=== PATIENT | female | born 1990 | race Hispanic/Latino ===

== ENCOUNTER 2020-06-29 12:56 | Emergency (ER) | payer OTHER ==
[2020-06-29 13:31] LABS: Absolute Lymphocytes (CBC) 1.2 K/uL (0.7-4.9); Basophils % 0.4 % (0-1.3); Hematocrit 47.4 % (36.0-45.0); Lymphocytes % 9.1 % (15.3-44.8); MPV 9.6 fL (7.6-11.3); RBC Red Blood Cell Count 5.14 M/uL (3.86-4.86)
[2020-06-29 13:50] LABS: Albumin 4.2 g/dL (3.4-5.0); Bilirubin Direct 0.2 mg/dL (0-0.2); Bilirubin Total 0.7 mg/dL (0.2-1.0); Potassium 3.8 mmol/L (3.5-5.1); Protein, Total 8.8 g/dL (6.4-8.2)
[2020-06-29] MEDS ORDERED: ONDANSETRON 4 MG/2 ML VIAL ONE (14:03)
[2020-06-29 14:23] LABS: Anisocytosis 1+; Blood Morphology Comment NOTED (NOT SEEN); Platelet Estimate ADEQ; Poikilocytosis 1+; Urine White Blood Cell Casts OK
[2020-06-29 15:00] LABS: Urine Blood TRACE (NEG); Urine Glucose NEGATIVE (NEG); Urine Protein 2+ (NEG); Urine Specific Gravity >1.030 (1.005-1.030)
[2020-06-29] MEDS ORDERED: Ringers Lactate 1,000 ML IV ONE (15:00)
[2020-06-29] MEDS ORDERED: MEPERIDINE HCL 50 MG/ML ONE (15:22)
[2020-06-29] MEDS ORDERED: PROMETHAZINE INJ 25 MG/ML AMP ONE (15:22)
--- NOTE | 2020-06-29 15:32 | RAD REPORT ---
EXAM DESCRIPTION: US - Abdomen Exam Limited - 06/29/2020 2:13 pm CLINICAL HISTORY: ABD PAIN COMPARISON: No comparisons FINDINGS: The gallbladder demonstrates several shadowing gallstones. No pericholecystic fluid or gal lbladder wall thickening. The common bile duct is upper limit of normal measuring 6 mm. The liver demonstrates no findings of intrahepatic biliary dilatation. IMPRESSION: Cholelithiasis without sonographic findings of acute cholecystitis.
--- NOTE | 2020-06-29 15:52 | ER ---
Nurse's Notes [facility] Name: Carolin Grace Age: 29 yrs Sex: Female : 1990 Arrival Date: 06/29/2020 Time: 12:59 Bed 7 Private MD: Diagnosis: Cholelithiasis;Upper abdominal pain, unspecified Presentation: 06/29 13:08 Chief complaint: Patient states: abd pain that started on Tuesday with n/v. Reports jr10 trying pepto bismal at home and herbal teas without relief. Coronavirus screen: Client denies travel out of the [place] in the last 14 days. At this time, the client does not indicate any symptoms associated with coronavirus-19. Ebola Screen: No symptoms or risks identified at this time. Initial Sepsis Screen: Does the patient meet any 2 criteria? No. Patient's initial sepsis screen is negative. Does the patient have a suspected source of infection? No. Patient's initial sepsis screen is negative. Risk Assessment: Do you want to hurt yourself or someone else? Patient reports no desire to harm self or others. Onset of symptoms was June 27, 2020. 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 - Social history:: Smoking status: unknown. Screenin:15 Abuse screen: Denies threats or abuse. Denies injuries from another. Nutritional jr10 screening: No deficits noted. Tuberculosis screening: No symptoms or risk factors identified. Fall Risk None identified. Assessment: 13:14 General: Appears uncomfortable, Behavior is calm, cooperative, appropriate for age. jr10 Pain: Complains of pain in right upper quadrant and left upper quadrant Pain does not radiate. Pain currently is 7 out of 10 on a pain scale. Quality of pain is described as sharp, Pain began 2-3 days ago. Is continuous, Alleviated by nothing. Neuro: No deficits noted. Cardiovascular: No deficits noted. Respiratory: No deficits noted. GI: Abdomen is round non-distended, Bowel sounds present X 4 quads. Abd is soft X 4 quads Abdomen is tender to palpation in right upper quadrant and left upper quadrant. : No deficits noted. : Denies burning with urination, pain with urination flank(s). EENT: No deficits noted. Derm: No deficits noted. Musculoskeletal: No deficits noted. Vital Signs: 13:08 BP 141 / 103; Pulse 77; Resp 18; Temp 98.1; Pulse Ox 100% ; Weight 81.65 kg (R); Height jr10 4 ft. 11 in. (149.86 cm) (R); Pain 7/10; 14:15 BP 134 / 93; Pulse 51; Resp 20; Pulse Ox 99% on R/A; jr10 15:15 BP 131 / 88; Pulse 59; Resp 18; Pulse Ox 98% on R/A; Pain 6/10; jr10 13:08 Body Mass Index 36.36 (81.65 kg, 149.86 cm) jr10 ED Course: 12:59 Patient arrived in ED. as 13:02 Sabino Gomez PA is PHCP. jr8 13:02 Samuel Mariee MD is Attending Physician. jr8 13:03 Ely Rollins, JEREMIAS is Primary Nurse. jr10 13:13 Triage completed. jr10 13:14 Arm band placed on. jr10 13:15 Patient has correct armband on for positive identification. Bed in low position. Call jr10 light in reach. Side rails up X 1. Pulse ox on. NIBP on. 13:20 Inserted saline lock: 20 gauge in left forearm, using aseptic technique. IV is patent, jr10 is intact, with good blood return, Flushed. 15:52 Damian Alarcon MD is Referral Physician. jr8 16:01 No provider procedures requiring assistance completed. IV discontinued, bleeding jr10 controlled, No redness/swelling at site. Pressure dressing applied. Administered Medications: 13:58 Drug: Zofran (Ondansetron) 4 mg Route: IVP; Site: left forearm; jr10 14:19 Follow up: Response: No adverse reaction; Nausea is decreased jr10 14:58 Drug: Ringers - Lactated Ringers Solution 1000 ml Route: IV; Rate: calculated rate; jr10 Site: left forearm; 15:46 Follow up: Response: No adverse reaction; IV Status: Completed infusion jr10 15:19 Drug: Promethazine 12.5 mg Route: IVP; Site: left forearm; jr10 15:46 Follow up: Response: No adverse reaction; Pain is decreased; Nausea is decreased jr10 15:23 Drug: Demerol 25 mg Route: IVP; Site: left forearm; jr10 15:46 Follow up: Response: No adverse reaction; Pain is decreased jr10 Outcome: 15:52 Discharge ordered by . jr8 16:02 Discharged to home ambulatory. jr10 16:02 Condition: improved 16:02 Discharge instructions given to patient, Instructed on discharge instructions, follow up and referral plans. Demonstrated understanding of instructions, follow-up care, medications, Prescriptions given X 2. 16:03 Patient left the ED. jr10 Signatures: Mary Mir Josh, PA PA jr8 Ely Rollins RN RN jr10
--- NOTE | 2020-06-29 15:53 | EDPHYS ---
Physician Documentation [facility] Name: Carolin Grace Age: 29 yrs Sex: Female : 1990 Arrival Date: 06/29/2020 Time: 12:59 Bed 7 Private MD: ED Physician Samuel Mariee HPI: 06/29 15:06 This 29 yrs old Female presents to ER via Ambulatory with complaints of jr8 Abdominal Pain. 15:06 The patient presents with abdominal pain in the epigastric area, in the upper abdomen. jr8 Onset: The symptoms/episode began/occurred suddenly, 2 day(s) ago. The symptoms do not radiate. Associated signs and symptoms: Pertinent positives: nausea and vomiting. The symptoms are described as stabbing. Modifying factors: The symptoms are alleviated by nothing, the symptoms are aggravated by food. Severity of pain: At its worst the pain was moderate in the emergency department the pain is unchanged. The patient has not experienced similar symptoms in the past. The patient has not recently seen a physician. 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 - Social history:: Smoking status: unknown. ROS: 15:06 Eyes: Negative for injury, pain, redness, and discharge, ENT: Negative for injury, jr8 pain, and discharge, Neck: Negative for injury, pain, and swelling, Cardiovascular: Negative for chest pain, palpitations, and edema, Respiratory: Negative for shortness of breath, cough, wheezing, and pleuritic chest pain, Back: Negative for injury and pain, MS/Extremity: Negative for injury and deformity, Skin: Negative for injury, rash, and discoloration, Neuro: Negative for headache, weakness, numbness, tingling, and seizure. 15:06 Abdomen/GI: Positive for abdominal pain, nausea, vomiting, Negative for diarrhea, constipation, abdominal cramps, abdominal distension. Exam: 15:06 Eyes: Pupils equal round and reactive to light, extra-ocular motions intact. Lids and jr8 lashes normal. Conjunctiva and sclera are non-icteric and not injected. Cornea within normal limits. Periorbital areas with no swelling, redness, or edema. ENT: Nares patent. No nasal discharge, no septal abnormalities noted. Tympanic membranes are normal and external auditory canals are clear. Oropharynx with no redness, swelling, or masses, exudates, or evidence of obstruction, uvula midline. Mucous membranes moist. Neck: Trachea midline, no thyromegaly or masses palpated, and no cervical lymphadenopathy. Supple, full range of motion without nuchal rigidity, or vertebral point tenderness. No Meningismus. Cardiovascular: Regular rate and rhythm with a normal S1 and S2. No gallops, murmurs, or rubs. Normal PMI, no JVD. No pulse deficits. Respiratory: Lungs have equal breath sounds bilaterally, clear to auscultation and percussion. No rales, rhonchi or wheezes noted. No increased work of breathing, no retractions or nasal flaring. Back: No spinal tenderness. No costovertebral tenderness. Full range of motion. Skin: Warm, dry with normal turgor. Normal color with no rashes, no lesions, and no evidence of cellulitis. MS/ Extremity: Pulses equal, no cyanosis. Neurovascular intact. Full, normal range of motion. Neuro: Awake and alert, GCS 15, oriented to person, place, time, and situation. Cranial nerves II-XII grossly intact. Motor strength 5/5 in all extremities. Sensory grossly intact. Cerebellar exam normal. Normal gait. 15:06 Abdomen/GI: Inspection: abdomen appears normal, Bowel sounds: active, all quadrants, Palpation: soft, in all quadrants, moderate abdominal tenderness, in the epigastric area and right upper quadrant, mass, is not appreciated, rebound tenderness, is not appreciated, voluntary guarding, is not appreciated, involuntary guarding, is not appreciated, no appreciated organomegaly, Indicators: McBurney's point is not tender, Mack's sign is negative, Rovsing's sign is negative, Liver: tenderness, is not appreciated. Vital Signs: 13:08 BP 141 / 103; Pulse 77; Resp 18; Temp 98.1; Pulse Ox 100% ; Weight 81.65 kg (R); Height jr10 4 ft. 11 in. (149.86 cm) (R); Pain 7/10; 14:15 BP 134 / 93; Pulse 51; Resp 20; Pulse Ox 99% on R/A; jr10 15:15 BP 131 / 88; Pulse 59; Resp 18; Pulse Ox 98% on R/A; Pain 6/10; jr10 13:08 Body Mass Index 36.36 (81.65 kg, 149.86 cm) jr10 MDM: 13:03 Patient medically screened. [facility] 15:50 Data reviewed: vital signs, nurses notes, lab test result(s), radiologic studies, 8 ultrasound. Data interpreted: Pulse oximetry: on room air is 98 %. Interpretation: normal. Counseling: I had a detailed discussion with the patient and/or guardian regarding: the historical points, exam findings, and any diagnostic results supporting the discharge/admit diagnosis, lab results, radiology results, the need for outpatient follow up, a general surgeon, to return to the emergency department if symptoms worsen or persist or if there are any questions or concerns that arise at home. Response to treatment: the patient's symptoms have markedly improved after treatment, patient is well hydrated. Tolerates PO fluids . 15:50 ED course: Patient feeling better. Hemodynamically stable. No signs on US of acute jr8 infection or obstruction of bile duct. No fever. Close return precautions and s/s to watch for given to patient. Patient will f/u with general surgery in the meantime or come back if worse . 06/29 13:02 Order name: Basic Metabolic Panel [facility] 06/29 13:02 Order name: CBC with Diff 06/29 13:02 Order name: Hepatic Function [facility] 06/29 13:02 Order name: Lipase [facility] 06/29 13:02 Order name: Urine Microscopic Only [facility] 06/29 13:32 Order name: CBC with Automated Diff; Complete Time: 14:36 EDMS 06/29 13:32 Order name: Urine Dipstick--Ancillary (enter results) [facility] 06/29 13:34 Order name: Urine --Ancillary (enter results) 06/29 13:50 Order name: Basic Metabolic Panel; Complete Time: 13:51 EDMS 06/29 13:50 Order name: Liver (Hepatic) Function; Complete Time: 13:51 EDMS 06/29 13:50 Order name: Lipase; Complete Time: 13:51 EDMS 06/29 14:24 Order name: CBC Smear Scan; Complete Time: 14:36 EDMS 06/29 15:01 Order name: Urine Dipstick-Ancillary; Complete Time: 15:01 EDMS 06/29 15:01 Order name: Urine --Ancillary; Complete Time: 15:01 EDMS 06/29 13:02 Order name: IV Saline Lock; Complete Time: 13:33 [facility] 06/29 13:02 Order name: Labs collected and sent; Complete Time: 13:33 [facility] 06/29 13:02 Order name: Urine Test (obtain specimen); Complete Time: 13:33 [facility] 06/29 13:02 Order name: Urine Dipstick-Ancillary (obtain specimen); Complete Time: 13:33 [facility] 06/29 13:51 Order name: US Abdomen Limited [facility] 06/29 15:32 Order name: US; Complete Time: 15:34 EDMS Administered Medications: 13:58 Drug: Zofran (Ondansetron) 4 mg Route: IVP; Site: left forearm; jr10 14:19 Follow up: Response: No adverse reaction; Nausea is decreased jr10 14:58 Drug: Ringers - Lactated Ringers Solution 1000 ml Route: IV; Rate: calculated rate; jr10 Site: left forearm; 15:46 Follow up: Response: No adverse reaction; IV Status: Completed infusion jr10 15:19 Drug: Promethazine 12.5 mg Route: IVP; Site: left forearm; jr10 15:46 Follow up: Response: No adverse reaction; Pain is decreased; Nausea is decreased jr10 15:23 Drug: Demerol 25 mg Route: IVP; Site: left forearm; jr10 15:46 Follow up: Response: No adverse reaction; Pain is decreased jr10 Disposition: 16:10 Co-signature as Attending Physician, Samuel Mariee MD. rn Disposition: 06/29/20 15:52 Discharged to Home. Impression: Cholelithiasis, Upper abdominal pain, unspecified. - Condition is Stable. - Discharge Instructions: Abdominal Pain, Adult, Cholelithiasis. - Prescriptions for Tylenol- Codeine #3 300-30 mg Oral Tablet - take 2 tablets by ORAL route every 6 hours As needed; 20 tablet. Zofran 4 mg Oral Tablet - take 1 tablet by ORAL route every 12 hours As needed; 20 tablet. - Medication Reconciliation Form, Thank You Letter, Antibiotic Education, Prescription Opioid Use form. - Follow up: Damian Alarcon MD; When: 2 - 3 days; Reason: Recheck today's complaints, Continuance of care, Re-evaluation by your physician. - Problem is new. - Symptoms have improved. Signatures: Dispatcher [employer] EDMS Samuel Mariee MD MD rn Roszak, Josh, PA PA jr8 Ely Rollins RN RN jr10 Corrections: (The following items were deleted from the chart) 16:03 15:52 06/29/2020 15:52 Discharged to Home. Impression: Cholelithiasis; Upper abdominal jr10 pain, unspecified. Condition is Stable. Forms are Medication Reconciliation Form, Thank You Letter, Antibiotic Education, Prescription Opioid Use. Follow up: Dr. Damian Alarcon; When: 2 - 3 days; Reason: Recheck today's complaints, Continuance of care, Re-evaluation by your physician. Problem is new. Symptoms have improved. jr8
[2020-06-29 16:08] VITALS: TEMP 98.1
[2020-06-29 16:10] VITALS: BP 131/88; O2SAT 98
[2020-06-29 16:17] LABS: Urine Amorphous Sediment 1+ /HPF (NONE SEEN); Urine Bacteria 20-50 /HPF (<20); Urine Culture Reflex Order REFLEXED; Urine Mucus 1+ /HPF (NONE SEEN); Urine RBC <5 /HPF (NONE SEEN)
== END 2020-06-29 16:03 | disposition home or self-care (01) ==
LOC: ER 12:56
DX: K80.20 Calculus of gallbladder without cholecystitis without obstruction (principal)
CPT/HCPCS: 87088; 85025; 87086; 80048; 36415; 81025; 80076; 83690; 76705; J2550; J2175; J7120; J2405; 81003; 81015; 96365; 96375; 99284

== ENCOUNTER 2020-07-02 06:34 | Day surgery (SDC) | payer OTHER ==
[2020-07-02] MEDS: Ringers Lactate 1,000 ML IV ONE ×3 (07:05→09:20)
[2020-07-02] MEDS ORDERED: CEFOXITIN/SWI 1gm 0 GM/0 ML SYR ONE (07:09)
[2020-07-02] MEDS: BUPIVACAINE 0.5% PF 10 ML VIAL ONE ×2 (07:14→07:47)
[2020-07-02] MEDS ORDERED: LIDOCAINE 2% MPF 5 ML VIAL ONE (07:15)
[2020-07-02] MEDS ORDERED: dexAMETHasone 10 MG/ML VIAL ONE (07:15)
[2020-07-02] MEDS ORDERED: MIDAZOLAM HCL 2 MG/2 ML INJ ONE (07:15)
[2020-07-02] MEDS ORDERED: FENTANYL CITR 100 MCG/2 ML ONE (07:15)
[2020-07-02] MEDS ORDERED: propofoL 200 MG/20 ML VIAL IV ONE (07:15)
[2020-07-02] MEDS ORDERED: ROCURONIUM 50 MG/5 ML VIAL IV ONE (07:16)
[2020-07-02] MEDS ORDERED: ONDANSETRON 4 MG/2 ML VIAL ONE ×2 (07:16→09:14)
[2020-07-02] MEDS ORDERED: CEFOXITIN/SWI 1gm 1 GM/10 ML SYR ONE (07:34)
[2020-07-02] MEDS ORDERED: NEOSTIGMINE 1 MG/ML -5 ML ONE (08:34)
[2020-07-02] MEDS ORDERED: GLYCOPYRROLATE 0.2 MG/ML SYR ONE (08:34)
[2020-07-02] MEDS ORDERED: KETOROLAC 30 MG/ML INJ ONE (08:34)
[2020-07-02] MEDS ORDERED: HYDROMORPHONE HCL 1 MG/ML INJ ONE (09:14)
[2020-07-02] MEDS ORDERED: HYDROCODONE/APAP 7.5/325 MG TAB ONE (10:01)
--- NOTE | 2020-07-02 10:43 | OP ---
Date of Procedure: 07/02/2020 Surgeon: Damian Alarcon MD Electric Stove Installer: Ara Michaels. Preoperative Diagnoses: [id number] cholecystitis, cholelithiasis. Postoperative Diagnoses: [id number] cholecystitis, cholelithiasis. Procedure: Laparoscopic cholecystectomy. Estimated Blood Loss: Minimal. Specimen: Gallbladder. Findings: As above. Anesthesia: General. Complications: None. Disposition: The patient tolerated the procedure in stable condition, taken to Recovery in good gene ral condition. Procedure In Detail: The patient was brought to the OR and placed in supine position. General anest hesia was begun. The patient was prepped and draped in usual sterile fashion. Marcaine 0.5% was inf iltrated locally. A 15-blade was used to make a 1 cm transverse infraumbilical incision where previo us incision line was made for a tubal. Subcutaneous tissue was divided. Fascia was identified and d ivided. #1 Vicryl stay suture was placed. Peritoneal cavity was entered with sharp and blunt dissec tion. 12 mm trocar was placed into the peritoneal cavity under direct vision. Pneumoperitoneum was established and three 5 mm trocars were placed; 1 in the epigastrium just to the right of midline and 2 in the right subcostal region. Laparoscopy revealed omental adhesions, which were taken down with sharp and blunt dissection. Bleeding was controlled with cautery and gallbladder was distended, asp irated. Hydrops was present consistent with acute cholecystitis. Then, fundus was retracted superio rly. Infundibulum was identified and retracted inferolaterally. Cystic duct and cystic artery were clearly identified with blunt dissection. Clips were placed. Both structures were divided. Cautery was used to remove the gallbladder from the liver bed. Bleeding on the liver bed was controlled wit h cautery. Gallbladder was retrieved through the umbilicus via an EndoCatch bag. Right upper quadra nt was irrigated. Effluent was clear. There was minimal oozing noted from the liver bed. Surgicel was placed in the liver bed. No more oozing noted. No bleeding noted. No bile noted. Therefore , all trocars were removed under direct vision. Stay sutures were tied to each other to reapproximate the fascial defect. Subcutaneous wounds were irrigated. Bleeding controlled with cautery. 3-0 lunchroom food service supervisor rick used to approximate the subcutaneous tissue and close the skin. Sterile dressing was applied. T he patient was awakened and taken to Recovery in good general condition. Discharge Note: The patient will go to Day Surgery and home when stable. Disposition: Home. Condition: Stable. Discharge Instructions: Resume home medications and diet. Activity as tolerated. No heavy lifting. Remove outer dressing in 2 days. Shower. Keep wound clean and dry. Follow up in my office in [place] w [place]. Call for appointment. Tylenol No. 3 one tablet p.o. q.4 p.r.n. pain. Incentive spirometry is ordered. It was also noted that the patient was already started on antibiotics prior to surgery and she will c ontinue Augmentin for another 9 days. /MODL Voice ID: [id number] Report ID: [id number]
[2020-07-02 12:46] VITALS: BP 141/90; TEMP 97.9; O2SAT 100
== END 2020-07-02 10:30 | disposition home or self-care (01) ==
LOC: OR 06:34
PROVIDERS: ATTEND Surgery
PROC: 0FT44ZZ Resection of Gallbladder, Percutaneous Endoscopic Approach (ICD-10-PCS; principal; 2020-07-02 07:30)
DX: K80.12 Calculus of gallbladder with acute and chronic cholecystitis without obstruction (principal); K66.0 Peritoneal adhesions (postprocedural) (postinfection); Z11.59 Encounter for screening for other viral diseases
CPT/HCPCS: 36415; 84703; 88304; 47562; U0002; J2704; J2250; J3010; J1100; J1170; J2710; J7120 ×2; J2405 ×2